=== PATIENT | female | born 1950 | race Caucasian/White ===

== ENCOUNTER 2016-12-28 00:15 | Outpatient (CLI) | payer MEDICARE, BC | END 2016-12-28 00:16 | disposition short-term general hospital (02) | DX: M25.551 Pain in right hip (principal) | CPT/HCPCS: A0425; A0429; A0888 ==

== ENCOUNTER 2017-04-13 14:22 | Outpatient (CLI) | payer MEDICARE, BC ==
--- NOTE | 2017-04-13 15:39 | XRAY Report ---
THREE VIEW LEFT ANKLE: 04/13/2017 CLINICAL INDICATION: Pain, edema. FINDINGS: AP, lateral, and oblique views of the left ankle demonstrate extensive arthritic changes, with collapse of the tibiotalar joint space and bulky osteophytes. There is no evidence of acute frac ture. Soft tissue swelling is seen. IMPRESSION: EXTENSIVE ARTHRITIC CHANGES. NO DEFINITE ACUTE FRACTURE IS APPRECIATED. JOB #: [id number] EXT JOB #:[id number]
== END 2017-04-13 14:23 | disposition home or self-care (01) ==
LOC: DI 14:22
PROVIDERS: ATTEND Podiatrist
DX: M19.072 Primary osteoarthritis, left ankle and foot (principal); M25.572 Pain in left ankle and joints of left foot; R60.0 Localized edema

== ENCOUNTER 2017-04-19 11:45 | Outpatient (CLI) | payer MEDICARE, BC ==
--- NOTE | 2017-04-19 17:33 | XRAY Report ---
THREE-VIEW RIGHT ANKLE: 04/19/2017 CLINICAL INDICATION: Pain, edema. COMPARISON: None. FINDINGS: AP, lateral, oblique views of the right ankle demonstrate moderate osteoarthritis. Planta r calcaneal spurring is present. There is no evidence of acute fracture or dislocation. No ankle david int effusion is seen. IMPRESSION: OSTEOARTHRITIS. JOB #: [id number] EXT JOB #:[id number]
== END 2017-04-19 11:46 | disposition home or self-care (01) ==
LOC: DI 11:45
PROVIDERS: ATTEND Podiatrist
DX: M19.071 Primary osteoarthritis, right ankle and foot (principal)